=== PATIENT | female | born 1970 | race Caucasian/White ===

== ENCOUNTER 2017-11-30 18:56 | Inpatient (IN) ==
[2017-11-30] MEDS ORDERED: NS 1,000 ML IV ONE ×2 (19:11→23:02)
[2017-11-30] MEDS ORDERED: PROCHLORPERAZINE 10 MG/2 ML INJECTION IVP ONE (19:11)
[2017-11-30] MEDS ORDERED: KETOROLAC 30 MG/ML INJECTION IVP ONE (19:11)
[2017-11-30] MEDS: GI COCKTAIL 30 ML PO ONE ×2 (19:26→20:00)
[2017-11-30] MEDS: SALINE FLUSH 10ml SYRINGE IVF PRN ×2 (19:26→22:11)
--- NOTE | 2017-11-30 19:26 | Emergency Department Report ---
Abdominal Pain HPI - General Chief Complaint: Nausea/Vomiting/Diarrhea Stated Complaint: severe stomach pain, vomiting Time Seen by Provider: 11/30/17 19:01 Source: patient, RN notes reviewed, old records reviewed Mode of arrival: ambulatory Limitations: no limitations - History of Present Illness HPI narrative: 46yo woman presents to the ER for evaluation of abd pain. Pt had abrupt onset of crampy, stabbing pain in her upper/mid abdomen at 0400 today. Pt tried kaopectate and generic 'tums', all without relief but with N/V. Pt has never had sx like this before. Did not try anything else for her sx. States that she has not been able to tolerate anything PO all day. Pain has worsened throughout the day; pt can no longer bear the pain at home. MD complaint: abdominal pain Onset (ago): hour(s) (15) Consistency: constant Location: diffuse Severity: severe Severity scale (1-10): 8 Quality: cramping, stabbing, sharp Radiation: none Migration to: no migration Relieving factors: nothing Exacerbating factors: eating, vomiting, medication, movement Associated symptoms: denies other symptoms Treatments prior to arrival: NSAIDs, antacids - Related Data Home Medications Medication Instructions Recorded Confirmed Ibuprofen 400 mg PO Q6H 11/30/17 11/30/17 Allergies Allergy/AdvReac Type Severity Reaction Status Date / Time No Known Allergies Allergy Unknown Verified 11/30/17 19:11 Review of Systems All systems: reviewed and negative except as stated Gastrointestinal: Reports: as per HPI, abdominal pain, nausea, vomiting. Denies : diarrhea, constipation, hematemesis, melena, hematochezia [facility] Medical History Updates: HTN - currently untreated - Social History Smoking status: Never smoker Physical Exam - Limitations Limitations: no limitations - General General appearance: alert, in no apparent distress, obese (Morbid) - Head Head exam: atraumatic, normocephalic, normal inspection - Eye Eye exam: Present: normal appearance, PERRL, EOMI. Absent: scleral icterus - ENT ENT exam: Present: normal exam, normal oropharynx, mucous membranes moist, normal external ear exam - Neck Neck exam: Present: normal inspection, full ROM, trachea midline - Chest Chest inspection: Present: normal inspection, symmetric chest wall rise. Absent : tenderness, rash - Respiratory Respiratory exam: Present: normal lung sounds bilaterally. Absent: respiratory distress, wheezes, stridor, prolonged expiratory phase, crackles - Cardiovascular Cardiovascular exam: Present: regular rate, normal rhythm, normal heart sounds. Absent: rubs, gallop, clicks - Abdominal Exam Abdominal exam: Present: soft, normal bowel sounds. Absent: distention, tenderness, guarding, rebound, rigidity, heel tap sign, Corral's sign, Rovsing' s sign, tenderness at McBurney's Point - Extremities Exam Extremities exam: Present: normal inspection, full ROM, normal capillary refill. Absent: tenderness, joint swelling - Skin Skin exam: Present: warm, dry, intact. Absent: rash - Neurological Exam Neurological exam: Present: alert, CN II-XII intact, reflexes normal - Psychiatric Psychiatric exam: Present: flat affect Course - Consultations Consultation #1: Dr. Rincon: Will need LFTs; if pt is jaundiced, will need to go [place] for ERCP. If not, can put pt in to the hospital for pain control and consider surgery tomorrow. Would also appreciate RUQ-US; can obtain tomorrow. Time: 22:05 Consultation #2: Adrian Telemed: Will admit for further eval/obs overnight with Gen Surg eval and RUQ-US in the AM. Time: 22:51 Vital Signs Temperature 99 F 11/30/17 19:04 Pulse Rate 109 H 11/30/17 19:04 Respiratory Rate 20 11/30/17 19:04 Blood Pressure 231/116 H 11/30/17 19:04 Pulse Oximetry 97 11/30/17 19:04 Temperature 99 F 11/30/17 19:04 Pulse Rate 109 H 11/30/17 19:04 Respiratory Rate 20 11/30/17 19:04 Blood Pressure 231/116 H 11/30/17 19:04 Pulse Oximetry 97 11/30/17 19:04 Abdominal Pain - MDM Narrative Medical decision making narrative: Pt with atypical presentation of acute cholecystitis. After discussion with Gen Surg, pt does not have bili elevation. Contacted hospitalist for evaluation and Gen Surg consult. Hospitalist has agreed to admit pt overnight. - Differential Diagnosis Differential diagnosis: Likely: abdominal pain, calculus of kidney, constipation , diverticulitis, gastroenteritis, pancreatitis, small bowel obstruction - Medical Records Attestation: I reviewed the patient's medical records. - Lab Data Attestation: I reviewed the patient's lab results. Result diagrams: 11/30/17 19:45 11/30/17 19:45 - Radiology Data Attestation: I reviewed the patient's radiology results. CXR: No acute CT pathology. KUB: Nonobstructing bowel gas pattern. No free air or fluid under the diaphragm. CT Abd/Pelv: IMPRESSION: 1. Distended gallbladder with mild pericholecystic edema. No calcified stones or ductal dilatation. Acute cholecystitis cannot be excluded. Recommend further correlation with right upper quadrant ultrasound. 2. Moderate to large sized hiatal hernia. 3. Mild hepatic steatosis and distal colonic diverticulosis. Disposition Clinical Impression: Acute cholecystitis Disposition: To [facility] [place] Acute Care Print Language: Thai Condition: Improved Prescriptions: No Action Ibuprofen 400 mg PO Q6H Referrals: Primary Care,You Choose [Primary Care Provider] - Time of Disposition: 23:07 - Seen By: physician
[2017-11-30] MEDS ORDERED: PIPERACILLIN/TAZOBACTAM 3.375 GM in NS 100 ML IV ONE ×2 (20:27→23:23)
[2017-11-30] MEDS ORDERED: SALINE FLUSH 10ml SYRINGE ONE (20:52)
[2017-11-30] MEDS ORDERED: IOHEXOL 300mg/ml 100ml INJECTION ONE (20:52)
[2017-11-30] MEDS ORDERED: MORPHINE SULFATE 4mg INJECTION IVP ONE (22:05)
[2017-11-30] MEDS ORDERED: MORPHINE SULFATE 4mg INJECTION IVP PRN (23:23)
[2017-11-30] MEDS ORDERED: ONDANSETRON 4 MG/2 ML INJECTION IVP PRN (23:23)
[2017-11-30 23:30] VITALS: BMI 39.2
[2017-11-30] MEDS ORDERED: MELATONIN 1 MG TABLET PO PRN (23:52)
[2017-12-01] MEDS: NS 1,000 ML IV SCH ×4 (00:05→23:51)
[2017-12-01] MEDS: PANTOPRAZOLE 40 MG INJECTION IVP SCH ×3 (00:05→23:51)
--- NOTE | 2017-12-01 02:44 | History & Physical Report ---
History of Present Illness Date: 12/01/17 Chief complaint: abdomen pain HPI: This is a 46 yo female with onset of abdomen pain at 4 am yesterday. The pain was epigastric and did not radiate to the back. The pateint had nausea/ vomiting with pain. no fever, chills or sweats. In the ED the CT demonstrated changes c/w acute cholecystitis but no stone identified. T bili normal but transaminases were elevated. The surgeon was contacted who requested medical admission and he would see in consult. The patient has a history of poorly treated HtN. The patient will be admitted with antibiotics, npo and surgical cx in the am with gallbladder us ordered. Review of Systems All systems PM: 10-point ROS was reviewed, no additional remarkable complaints except Past Medical History Medical History Updates: HTN - currently untreated Surgical History: tubal ligation, JOLEEN Family History Updates: mother alive and well, father from throat cancer Family History: As Above - Social History Smoking status: Former smoker Substance use type: does not use Alcohol intake frequency: holidays/special occasions only Housing: house Household members: friend(s) Current occupational status: unemployed Current residence: Apartment/Private Home Medications Home Medications Medication Instructions Recorded Confirmed Type Ibuprofen 400 mg PO Q6H 11/30/17 11/30/17 History Allergies Allergy/AdvReac Type Severity Reaction Status Date / Time No Known Allergies Allergy Unknown Verified 11/30/17 19:11 Exam Vital Signs: Temperature 97.1 F 12/01/17 00:44 Pulse Rate 82 12/01/17 00:44 Respiratory Rate 16 12/01/17 00:44 Blood Pressure 148/72 H 12/01/17 00:44 Pulse Oximetry 97 12/01/17 00:44 Telemetry Rhythm: Sinus Rhythm Height/Weight/BMI: Height 1.55 m Weight 94.2 kg Body Mass Index 39.2 - Constitutional Present: mild distress - Routine HEENT Exam Head: Present: normocephalic, atraumatic Eye: Present: PERRL, conjunctivae pink ENT: Present: mucous membranes dry - Routine Neck Exam Present: supple, full ROM - Routine Respiratory Exam Present: CTA bilaterally - Routine Cardiovascular Exam Present: RRR, no murmur - Routine Abdominal Exam Present: soft, non distended, non tender - Routine Extremities Exam Present: no edema - Routine Back/Spine/Pelvis Exam Back/Spine: Present: full ROM - Routine Skin Exam Present: intact, dry - Routine Neurological Exam Present: alert, oriented X3, moving all extremities, normal tone, vision grossly intact, normal speech - Routine Psychiatric Exam Present: normal affect, normal thought process Results - Labs CBC & Chem 7: 11/30/17 19:45 11/30/17 19:45 Labs: reviewed above and will be discussed below CT abd/pelvis c/w acute cholecystitis without stone. pancrease normal Assessment and Plan (1) Acute cholecystitis Current visit: Yes Status: Acute (2) Transaminitis Current visit: Yes Status: Acute (3) Severe sepsis Current visit: Yes Status: Acute (4) Hyperglycemia Current visit: Yes Status: Acute (5) Hypertension Current visit: Yes Status: Acute Assessment and Plan: 1. acute cholecystitis acute POA: npo, zosyn, surgical cx. Dr. Rincon will see in am. repeat labs in the am. ct abd and pelvis appreciated. with transmaiminitis ? dropped stone. US gallbladder ordered for am. 2. severe sepsis acute POA: fluids, cycle LA, should easily improve with fluids and antibitoics 3. HTN chronic POA: hydralazine prn 4. transaminitis acute POA: concerned for dropped stone. US gallbaldder in the am 5. hyperglycemia acute POA: stress related. cannot ecxlude unappeciated dm. repeat labs in the am DVT Prophylaxis: SCD's, Lovenox GI Prophylaxis: Protonix Resuscitation Status: Full Code - Time spent with patient Time with patient PN: 30 minutes - Physician Narrative Physician: Macey Garcia MD Narrative: Date: 12/01/17 Time: 0241 Hospital Course Summary Disclaimer: The visit summary below is not to be considered part of the above Progress Note.
[2017-12-01] MEDS: PIPERACILLIN/TAZOBACTAM 3.375 GM in NS 100 ML IV SCH ×4 (02:56→20:11)
--- NOTE | 2017-12-01 07:26 | CT Scan Report ---
Indication: Abd pain with 21k WBC PROCEDURE: CT abdomen pelvis w con: Encounter: Initial Comparison: None Technique: Axial CT images were performed through the abdomen and pelvis after the administration of intravenous contrast. Coronal and sagittal two-dimensional reformats. Automated Exposure Control and Iterative Reconstruction dose reducing techniques were utilized. Contrast: Omnipaque 300 100 mL Findings: The lung bases are clear. The liver is fatty infiltrated without enhancing mass or bile duct dilatation. Large hiatal hernia with a partially intrathoracic stomach. The gallbladder is mildly distended without gross stone disease. Questionable induration of the surrounding fat. The spleen, pancreas and adrenal glands are within normal limits. The kidneys are normal. No abdominal or pelvic lymphadenopathy. Bladder is normal. Uterus is absent. No free fluid. Mild colonic diverticulosis without acute diverticulitis. The appendix is normal. Bone windows show no acute findings. Impression: Mild gallbladder distention with questionable surrounding inflammation. Right upper quadrant ultrasound could be performed for more sensitive evaluation of possible cholecystitis. There is a preliminary report by [employer]. .
--- NOTE | 2017-12-01 07:28 | XRay Report ---
Indication: Abd pain/n/v PROCEDURE: XR KUB: Encounter: Initial Comparison: None Findings: The bowel gas pattern is nonobstructive and nonspecific. Gas is seen in nondilated small and large bowel to the level of the rectum. Moderate stool is seen throughout the colon. The bony structures are grossly unremarkable. Impression: Nonobstructive nonspecific bowel gas pattern. .
--- NOTE | 2017-12-01 07:29 | XRay Report ---
Indication: HTN PROCEDURE: XR chest 1V: Encounter: Initial Comparison: None FINDINGS: The lungs are clear. There is no abnormal airspace opacity, pleural effusion or pneumothorax identified. The heart size and pulmonary vasculature are within normal limits. Moderate sized gas containing hiatal hernia. No significant skeletal abnormality is seen. IMPRESSION: No acute cardiopulmonary abnormality. .
--- NOTE | 2017-12-01 08:35 | Ultrasound Report ---
Indication: acute cholecystitis PROCEDURE: US gall bladder: Encounter: Initial Comparison: None Technique: Grayscale and color Doppler sonographic imaging of the right upper quadrant of the abdomen was performed. Findings: Hepatic parenchyma is echogenic and sonographically dense without evidence for focal mass. The gallbladder shows a few small shadowing gallstones which appear fixed in the neck with borderline gallbladder wall thickening at 3 mm. Sonographic Corral's sign was reportedly negative. Both the intra and extrahepatic biliary system are of normal caliber with the common duct measuring 2 mm in dimension. Visualized portions of the head and body of the pancreas are unremarkable. The right kidney is present without collecting system dilatation. The right kidney measures 10.7 cm in length. Impression: Cholelithiasis with borderline gallbladder wall thickening can represent acute cholecystitis in the appropriate clinical setting. Recommend surgical evaluation. .
[2017-12-01] MEDS: ENOXAPARIN 40 MG/0.4 ML INJECTION SQ SCH (09:46)
--- NOTE | 2017-12-01 12:43 | History & Physical Report ---
History of Present Illness Date: 12/01/17 HPI: Pt comes in d/t abdominal pain and n/v that started yesterday morning. Pt reports it came on suddenly and didn't really improve throughout the day which led her to come in to the ED last night. Pt vomited multiple times yesterday but denies any hematemesis. Pt reports subjective fever but denies chills. Denies any cp or sob. Pt denies any previous such episodes. 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 Pt denies any other recent illnesses. Denies any hx of liver disease. Denies any drug use, reports occasional EtOH use. Uses tylenol and ibuprofen for joint pain. The abdominal pain was mostly lower and did not radiate anywhere. For full H&P please see previous note. HPI from overnight: This is a 46 yo female with onset of abdomen pain at 4 am yesterday. The pain was epigastric and did not radiate to the back. The pateint had nausea/ vomiting with pain. no fever, chills or sweats. In the ED the CT demonstrated changes c/w acute cholecystitis but no stone identified. T bili normal but transaminases were elevated. The surgeon was contacted who requested medical admission and he would see in consult. The patient has a history of poorly treated HtN. The patient will be admitted with antibiotics, npo and surgical cx in the am with gallbladder us ordered. Review of Systems Review of systems: 10 point ros negative other than what is noted in HPI Past Medical History Medical History Updates: HTN - currently untreated Surgical History: tubal ligation, JOLEEN Family History: As Above - Social History Smoking status: Former smoker Current residence: Apartment/Private Home Medications Home Medications Medication Instructions Recorded Confirmed Type Ibuprofen 400 mg PO Q6H 11/30/17 11/30/17 History Allergies Allergy/AdvReac Type Severity Reaction Status Date / Time No Known Allergies Allergy Unknown Verified 11/30/17 19:11 Exam Vital Signs: Temperature 98.4 F 12/01/17 07:23 Pulse Rate 82 12/01/17 07:23 Respiratory Rate 16 12/01/17 07:23 Blood Pressure 155/73 H 12/01/17 07:23 Pulse Oximetry 95 12/01/17 07:23 Height/Weight/BMI: Height 5 ft 1 in Weight 93.5 kg Body Mass Index 39.2 - Constitutional Present: no acute distress - Routine HEENT Exam Head: Present: normocephalic, atraumatic Eye: Present: EOMI ENT: Present: mucous membranes moist - Routine Respiratory Exam Present: CTA bilaterally. Absent: rales, wheezes - Routine Cardiovascular Exam Present: RRR, no murmur - Routine Abdominal Exam Present: soft, normoactive bowel sounds, non distended, non tender - Routine Extremities Exam Present: no edema. Absent: cyanosis, clubbing - Routine Skin Exam Present: intact, dry. Absent: erythema - Routine Neurological Exam Present: alert, oriented X3 - Routine Psychiatric Exam Present: normal affect, normal thought process Results - Labs CBC & Chem 7: 12/01/17 04:07 12/01/17 04:07 Assessment and Plan (1) Acute cholecystitis Current visit: Yes Status: Acute (2) Transaminitis Current visit: Yes Status: Acute (3) Severe sepsis Current visit: Yes Status: Acute (4) Hyperglycemia Current visit: Yes Status: Acute (5) Hypertension Current visit: Yes Status: Acute Assessment and Plan: Marked Transaminitis -Check liver doppler, cpk, tylenol lvl, hepatitis panel, uds -Unlikely to be from possible cholecystitis Cholecystitis? -Not convinced pt has cholecystitis, discussed with and he is also skeptical -Abd exam and hx not fully consistent, labs are not fitting with cholecystitis, CT/US not conclusive either -Will do HIDA scan -Cont. zosyn for now, surgery team following HTN -Diet controlled per pt - Physician Narrative Narrative: Date: 12/01/17 Time: 1216 Hospital Course Summary Disclaimer: The visit summary below is not to be considered part of the above Progress Note. Hospital Course: 12/01/17 Pt's clinical picture not fully consistent with cholecystitis, marked transaminitis not typically seen with that, will do further work up and HIDA scan and cont. to monitor.
--- NOTE | 2017-12-01 13:03 | Ultrasound Report ---
Indication: Need doppler to rule out vascular occlusion (budd chiari) PROCEDURE: US abd/pelvic doppler complete: Encounter: Initial Comparison: CT abdomen dated November 30, 2017 Technique: Grayscale and color Doppler duplex sonographic imaging of the hepatic vessels was performed. Findings: Pancreas appears grossly normal. Flow direction in the main portal vein is normal with a velocity of 23.4 cm/s, within normal limits. Flow direction is normal with appropriate velocities in the right and left portal vein branches. Appropriate flow direction in the hepatic artery with a peak systolic velocity of 150 cm/s, end diastolic velocity of 54.5 cm/s and resistive index of 0.64. Normal flow direction with appropriate variability in the left, middle and right hepatic veins. Impression: Normal waveforms and velocities. No evidence of hepatic or portal vein occlusion. .
[2017-12-01] MEDS ORDERED: NS (Bact) 30ml INJECTION ONE (13:24)
[2017-12-01] MEDS ORDERED: SALINE FLUSH 10ml SYRINGE ONE (13:24)
--- NOTE | 2017-12-01 16:39 | Nuclear Medicine Report ---
Indication: possibly cholecystitis PROCEDURE: NM hepatobiliary wo pharm: Encounter: Initial Comparison: Gallbladder ultrasound from today and CT abdomen/pelvis from yesterday Technique: 6.5 mCi of Tc-99m mebrofenin was injected intravenously. At approximately 60 minutes following this administration, 2 mg of morphine was administered intravenously due to nonvisualization of the gallbladder. Anterior planar images were obtained. FINDINGS: Radiotracer uptake is seen homogenously within the liver. There is normal clearance of radiotracer from the blood pool. The common bile duct is visualized at approximately 10 minutes. The gallbladder was not visualized by 60 minutes. 2 mg of morphine was administered intravenously followed by an additional 30 minutes of imaging. Persistent nonvisualization of the gallbladder during this post morphine imaging. There is no evidence of radiotracer outside the biliary or gastrointestinal tract. IMPRESSION: Gallbladder nonvisualization consistent with acute cholecystitis. .
[2017-12-01] MEDS: HYDRALAZINE 20 MG/ML INJECTION IVP PRN (16:58)
--- NOTE | 2017-12-01 19:40 | Consultation ---
DATE OF CONSULTATION 12/01/2017 HISTORY OF PRESENT ILLNESS This patient is 46 years old. This patient woke up with abdominal pain at 4:00 a.m. on 11/30/2017. She began vomiting about one hour after that. The patient did have periumbilical abdominal pain at this time. This was mid abdominal pain. It was generalized abdominal pain. It was not localized to the right upper quadrant. The abdominal pain continued throughout the day on 11/30/2017. The patient did vomit multiple times throughout the day on 11/30/2017. She never did experience any diarrhea on 11/30/2017. The patient did finally come in to [facility] Emergency Room on the evening of 11/30/2017 because of persistence of the abdominal pain, nausea and vomiting. White blood cell count at the time of emergency room evaluation was 21,700 with no bands. The patient had serum lipase performed at the time of evaluation at the emergency room and the result was 88 which is normal. The patient had liver function tests performed at the time of evaluation at the emergency room. Total bilirubin was 0.8 which was normal. Alkaline phosphatase was 103 which was normal. AST was 231 which was elevated. ALT was 115 which was elevated. The patient did have a CT scan of the abdomen and pelvis performed at the time of evaluation at the emergency room. This showed some mild gallbladder distention with questionable surrounding inflammation. There was no bile duct dilation. The patient did not have any gallstones demonstrated by the CT scan. The CT scan did show a large hiatal hernia with partial intrathoracic stomach. The CT scan did also show some mild colonic diverticulosis. The patient was admitted to [facility] from the emergency room by the hospitalist service with plans to perform a gallbladder sonogram on the following morning and consult Dr. Rincon on the following morning. The patient was started on treatment with Zosyn 3.375 g every six hours at the time of admission to the hospital. The patient states that she feels much better today. She states that her abdominal pain has completely disappeared. She states that her nausea and vomiting has also disappeared. The patient did undergo a gallbladder sonogram on the morning of 12/01/2017. This gallbladder sonogram shows a few small shadowing gallstones which appear fixed in the neck of the gallbladder with borderline gallbladder wall thickening at 3 mm. Sonographic Corral sign is negative. Bile ducts are not dilated. The radiologist did think that the cholelithiasis with borderline gallbladder wall thickening could represent acute cholecystitis in the appropriate clinical setting. White blood cell count on the morning of 12/01/2017 is 11,000 with no bands. Total bilirubin is 1.9. Alkaline phosphatase is 117. AST is 726. ALT is 505. PHYSICAL EXAMINATION VITAL SIGNS: Temperature is 98.4 degrees Fahrenheit oral. Pulse is 82. Respiratory rate is 16. Blood pressure is 155/73. Pulse is 95% on room air. ABDOMEN: The abdomen is soft and nontender. There are no abdominal masses. SKIN: No jaundice. PAST MEDICAL HISTORY PREVIOUS OPERATIONS 1. bilateral tubal ligation in 1993 in [place]. 2. Transvaginal hysterectomy and posterior colporrhaphy on 12/11/[address] Yamel Reaves at [facility] at [place], [place]. Postoperative diagnoses were metrorrhagia, rectocele and uterine prolapse. LABORATORY DATA The patient has had laboratory test results as described above in the History of Present Illness section. White blood cell count this morning is 11,000 with no bands. Hemoglobin is 10.2. Hematocrit is 32.6. Total bilirubin this morning is 1.9. AST is 726. ALT is 505. Alkaline phosphatase is 117. IMAGING DATA The patient did have a CT scan of the abdomen and pelvis on the evening of 11/30. This shows mild gallbladder distention with questionable surrounding inflammation. No gallstones are demonstrated. Bile ducts are not dilated. The patient underwent a gallbladder sonogram on 12/01/2017. This shows cholelithiasis with borderline gallbladder wall thickening. The radiologist thought this could represent acute cholecystitis in the appropriate clinical setting. IMPRESSION 1. Cholelithiasis with borderline gallbladder wall thickening demonstrated on 12/01/2017 gallbladder sonogram which could represent some early acute cholecystitis. 2. Markedly elevated AST and ALT liver function tests on 12/01/2017 of uncertain cause. 3. Large hiatal hernia with partial intrathoracic stomach demonstrated on 11/30 CT scan of the abdomen and pelvis. 4. Mild colonic diverticulosis demonstrated on 11/30/2017 CT scan of the abdomen and pelvis. 5. Anemia. 6. Episode of acute periumbilical abdominal pain, nausea and vomiting yesterday which is now resolved today. RECOMMENDATION I did see the patient in her room this morning along with Dr. Safder. I think that the patient does need to have a multiport robotic laparoscopic cholecystectomy at some point for treatment of the cholelithiasis with this possible episode of acute cholecystitis. That will probably be performed at some point during this hospitalization. We did talk about holding off on this operation for a short period time for further evaluation of the elevated AST and ALT liver function tests to see if there is some additional process accounting for these abnormal laboratory values. An acute hepatitis panel can be checked. A hepatobiliary scan could be performed. The patient can then be reassessed tomorrow. MTDD
[2017-12-01] MEDS ORDERED: KETOROLAC 30 MG/ML INJECTION IVP ONE (20:03)
[2017-12-02] MEDS: PIPERACILLIN/TAZOBACTAM 3.375 GM in NS 100 ML IV SCH ×3 (03:22→15:13)
[2017-12-02] MEDS: NS 1,000 ML IV SCH (06:28)
--- NOTE | 2017-12-02 10:32 | Progress Note ---
- Date 12/02/17 Subjective: Pt reports feeling better this am, denies any n/v/d, f/c, cp or sob. Denies any abd pain. Pt would like to eat soon. Pt's headache is better from last night. Objective Vital signs: Temperature 97.3 F 12/02/17 00:16 Pulse Rate 83 12/02/17 00:16 Respiratory Rate 18 12/02/17 00:16 Blood Pressure 150/89 H 12/02/17 00:16 Pulse Oximetry 95 12/02/17 00:16 Height/Weight/BMI: Height 5 ft 1 in Weight 93.2 kg Body Mass Index 39.2 - Constitutional Present: no acute distress - Routine HEENT Exam Head: Present: normocephalic, atraumatic Eye: Present: EOMI ENT: Present: mucous membranes moist - Routine Cardiovascular Exam Present: RRR, no murmur - Routine Abdominal Exam Present: soft, non distended, non tender - Routine Extremities Exam Present: no edema. Absent: cyanosis, clubbing - Routine Skin Exam Present: intact, dry. Absent: erythema - Routine Neurological Exam Present: alert, oriented X3 - Routine Psychiatric Exam Present: normal affect Results - Labs CBC & Chem 7: 12/02/17 04:25 12/02/17 04:25 Assessment and Plan (1) Acute cholecystitis Current visit: Yes Status: Acute (2) Transaminitis Current visit: Yes Status: Acute (3) Severe sepsis Current visit: Yes Status: Acute (4) Hyperglycemia Current visit: Yes Status: Acute (5) Hypertension Current visit: Yes Status: Acute Assessment and Plan: Marked Transaminitis -liver doppler unremarkable, cpk wnls, tylenol lvl neg, hepatitis panel pending , uds neg -No clear etiology, not typical with cholecystitis - will get liver biops during cholecystectomy Cholecystitis -Clinical picture not completely consistent but HIDA scan confirmed cholecystitis -Abd exam and hx not fully consistent, labs are not fitting with cholecystitis, CT/US not conclusive either -Cont. zosyn for now, plan for surgery today HTN -Uncontrolled, systolic ranging high in 170s, previously diet controlled -Will start chlorthalidone after surgery - Physician Narrative Narrative: Date: 12/02/17 Time: 1028 Hospital Course Summary Disclaimer: The visit summary below is not to be considered part of the above Progress Note. Hospital Course: 12/01/17 Pt's clinical picture not fully consistent with cholecystitis, marked transaminitis not typically seen with that, will do further work up and HIDA scan and cont. to monitor. 12/02/17 HIDA scan showed cholecystitis, unclear reason for marked transaminitis, plan for surgery today and possibly get a liver biopsy.
[2017-12-02] MEDS: LR 1,000 ML IV SCH ×3 (10:51→15:21)
[2017-12-02] MEDS ORDERED: FentaNYL 250 MCG/5 ML INJECTION ONE ×2 (10:54→12:23)
[2017-12-02] MEDS ORDERED: ROCURONIUM 50 MG/5 ML INJECTION IVP ONE (10:54)
[2017-12-02] MEDS ORDERED: PROPOFOL 20 ML ONE (10:54)
--- NOTE | 2017-12-02 10:58 | Anesthesia Preoperative Report ---
Anesthesia Preoperative Record - Date and Time Date: 12/02/17 Preoperative Diagnosis: severe stomach pain, vomiting Proposed Procedure: robotic assisted lap aby NPO Since Date: 12/02/17 (0300 ice chips no solids since mn ) NPO Since Time: 03:00 Allergies/Adverse Reactions: Allergies Allergy/AdvReac Type Severity Reaction Status Date / Time No Known Allergies Allergy Unknown Verified 11/30/17 19:11 - Vital Signs Vital Signs: Temperature 99.2 F 12/02/17 10:40 Pulse Rate 84 12/02/17 10:40 Respiratory Rate 20 12/02/17 10:40 Blood Pressure 192/99 H 12/02/17 10:40 Pulse Oximetry 98 12/02/17 10:40 Height and Weight: Height 1.55 m Weight 93.2 kg Body Mass Index 39.2 - Medications Inpatient Medications: Current Medications Chlorthalidone (Hygroton) 12.5 mg PO WB WALDO Enoxaparin Sodium (Lovenox) 40 mg SQ DAILY [facility] Last Admin: 12/01/17 09:46 Dose: 40 mg Hydralazine HCl (Apresoline) 10 mg IVP Q6H PRN PRN Reason: Hypertension Last Admin: 12/01/17 16:58 Dose: 10 mg Sodium Chloride (Normal Saline) 1,000 mls @ 100 mls/hr IV .Q10H [facility] Last Admin: 12/02/17 06:28 Dose: Not Given Piperacillin Sod/Tazobactam (Sod 3.375 gm/ Sodium Chloride) 100 mls @ 200 mls/ hr IV Q6H [facility] Last Admin: 12/02/17 07:56 Dose: 200 mls/hr Lactated Ringer's (Lactated Ringers) 1,000 mls @ 100 mls/hr IV .Q10H [facility] Last Admin: 12/02/17 10:51 Dose: 100 mls/hr Melatonin (Melatonin) 3 mg PO HS PRN Last Admin: 12/01/17 20:10 Dose: 3 mg Morphine Sulfate (Morphine Sulfate Inj) 2 - 4 mg IVP Q2H PRN PRN Reason: Pain Last Admin: 12/01/17 15:43 Dose: 2 mg Ondansetron HCl (Zofran) 4 mg IVP Q6H PRN PRN Reason: Nausea &/or vomiting Pantoprazole Sodium (Protonix Iv) 40 mg IVP Q12H [facility] Last Admin: 12/01/17 23:51 Dose: 40 mg Sodium Chloride (Iv Flush) 10 - 80 ml IVF PRN PRN PRN Reason: Flushing Last Admin: 11/30/17 22:11 Dose: 10 ml Home Medications: Home Medications Medication Instructions Recorded Confirmed Type Ibuprofen 400 mg PO Q6H 11/30/17 11/30/17 History - Medical History Respiratory: Reports: Sleep Apnea (pt thinks she has it but not diagnosed ) Cardiovascular: Reports: Hypertension (was not taking anything before hospital visit ) Gastrointestional: Reports: Morbid Obesity Neuro/Musculoskeletal: Reports: Depression (anxiety not treated medically), Headaches - Surgical History Reproductive Surgery/Treatment: Reports: Hysterectomy, Tubal Ligation Anesthesia Reactions: None Hx Family Anesthesia Reaction: Yes (sister unknown problems except nausea vomiting ) - Social History Smoking Status: Former smoker Substance Use Type: does not use Alcohol Intake Frequency: holidays/special occasions only - Pertinent Findings Laboratory: CBC and BMP 12/02/17 04:25 12/02/17 04:25 BMP 12/01/17 12/02/17 19:33 04:25 Sodium 145 H 145 H Potassium 3.7 3.4 L Chloride 111 H 110 H Carbon Dioxide 22 23 BUN 7.0 7.0 Creatinine 0.5 L 0.6 L Glucose 128 H 103 Calcium 8.4 8.4 Cardiac Enzymes 12/01/17 Range/Units 04:07 Total Creatine Kinase 47 (30-135) U/L Liver Function 12/01/17 12/02/17 Range/Units 19:33 04:25 Total Bilirubin 1.20 0.80 (0.20-1.30) MG/DL AST 572 H 336 H (14-36) U/L ALT 614 H 526 H (1-35) U/L Alkaline Phosphatase 160 H D 143 H (38-126) U/L Albumin 3.7 3.4 L (3.5-5.0) g/dL EKG: Sinus Rhythm - Physical Exam Respiratory Exam: Present: lungs clear, bilateral breath sounds equal Cardiovascular Exam: Present: regular rate and rhythm, no murmur - Airway Assessment Mallampati Score: III TMD: 2 Fingerbreadths Neck Extension: fair Overall Assessment: may be difficult intubation - ASA ASA Score: 3 - Plan Anesthesia: General Inhalation Gases - Discussion Discussion: Discussed risks/options/alternatives of anesthesia and questions answered. Patient consents. Nursing pain assessment noted. Attestation Statement: Prior to the delivery of any anesthetic medication, I examined the patient, developed the plan, obtained the patient's consent and discussed the risk and benefits of the procedure with the patient/guardian. - Additional Information Seen by Anesthesia: Yes
[2017-12-02] MEDS ORDERED: BUPIVACAINE 0.25% (2.5mg/ml) PF 30ml INJECTION ONE (11:00)
[2017-12-02] MEDS ORDERED: SALINE FLUSH 10ml SYRINGE ONE (11:00)
[2017-12-02] MEDS ORDERED: INDOCYANINE GREEN 25mg INJECTION ONE (11:00)
[2017-12-02] MEDS ORDERED: INDOCYANINE GREEN 25mg INJECTION IVP ONE (11:24)
[2017-12-02] MEDS ORDERED: SALINE FLUSH 10ml SYRINGE IV ONE (11:24)
[2017-12-02] MEDS ORDERED: MIDAZOLAM 2mg/2ml INJECTION ONE (11:31)
[2017-12-02] MEDS ORDERED: BUPIVACAINE 0.25% (2.5mg/ml) PF 30ml INJECTION ID ONE (11:49)
[2017-12-02] MEDS ORDERED: SUGAMMADEX 200mg/2ml INJECTION IVP ONE (13:02)
--- NOTE | 2017-12-02 13:41 | General Surgery Procedure Note ---
Date of Procedure: 12/02/17 Surgeon: Mckenzie Postoperative Diagnosis: Acute cholecystitis. Procedure: Robotic laparoscopic cholecystectomy. Estimated Blood Loss: See Anesthesia Record.
[2017-12-02] MEDS ORDERED: DiphenhydrAMINE 50 MG/ML INJECTION IVP PRN (13:48)
[2017-12-02] MEDS: HYDROMORPHONE 2 MG/ML INJECTION IVP PRN ×3 (14:06→14:38)
[2017-12-02] MEDS ORDERED: PROMETHAZINE 25 MG INJECTION IVP PRN (14:54)
[2017-12-02] MEDS ORDERED: ONDANSETRON 4 MG/2 ML INJECTION IVP PRN (14:54)
[2017-12-02] MEDS ORDERED: MORPHINE SULFATE 10mg/ml INJECTION IV PRN (14:54)
[2017-12-02] MEDS ORDERED: ACETAMINOPHEN 500 MG TABLET PO PRN (14:54)
--- NOTE | 2017-12-02 15:14 | Operative Note ---
DATE OF OPERATION 12/02/2017 PREOPERATIVE DIAGNOSES 1. Acute cholecystitis and cholelithiasis. 2. Elevated AST and ALT liver function tests. POSTOPERATIVE DIAGNOSES 1. Acute cholecystitis and cholelithiasis. 2. Elevated AST and ALT liver function tests. OPERATION Multiport robotic laparoscopic cholecystectomy and laparoscopically directed needle biopsies of the liver. SURGEON Dr. Rincon ANESTHESIA General. ASA CLASS 2 FINDINGS The patient did have an old infraumbilical incision scar from a bilateral tubal ligation operation. The gallbladder was distended. There was clear fluid aspirated from the gallbladder. The fluid aspirated from the gallbladder did not appear purulent. The gallbladder wall appeared quite thickened. There was some edema around the gallbladder. All these findings were thought to be consistent with some acute cholecystitis. The gallbladder did contain gallstones. The cystic duct had a normal caliber. The liver appeared completely normal. DESCRIPTION OF OPERATION The patient did have injectable indocyanine green dye administered intravenously preoperatively. The patient was placed in supine position on the operating table. General anesthesia was satisfactorily induced. The abdomen was prepped and draped in routine sterile fashion. Bupivacaine 0.25% without epinephrine was infiltrated into the skin and underlying tissue at an infraumbilical incision site. An elliptical incision was made around the old infraumbilical incision scar and extended down into subcutaneous tissue in a wedge-shape fashion to excise the old infraumbilical skin incision scar. A Veress needle was inserted into the peritoneal cavity through the infraumbilical incision. Pneumoperitoneum was established with carbon dioxide. The Veress needle was removed. A 12-mm camera port was placed at the infraumbilical incision. A 12-mm 30-degree da Kat laparoscope was inserted at the infraumbilical port. The table was placed in reverse Trendelenburg position. The right side of the table was tilted up. The skin and underlying structures at the abdominal wall were infiltrated with bupivacaine at a port site at the left upper quadrant of the abdomen at the midclavicular line. An incision was made at this site and an 8-mm da Kat instrument port was placed at this incision. The skin and underlying abdominal wall structures were infiltrated with bupivacaine at another incision site at the left side of the abdomen. An incision was made at this site and an AirSeal assistant principal port was placed at this incision. The skin and underlying abdominal wall structures were infiltrated with bupivacaine at a port site at the right upper quadrant of the abdomen. An incision was made at this site and an 8-mm da Kat instrument port was placed at this incision. The skin and underlying abdominal wall structures were infiltrated with bupivacaine at another port site at a more lateral location at the right side of the abdomen. An incision was made at this site and another 8-mm da Kat instrument port was placed at this incision. The da Kat robotic system was brought up to the operating table. The da Kat robotic system was docked to the camera port and instrument ports. The da Kat 12-mm 30-degree laparoscope was inserted at the camera port. A [place] bipolar forceps was inserted at the 8-mm instrument port at the left upper quadrant of the abdomen associated with instrument arm #1. A Cadiere forceps was inserted at the 8-mm instrument port at the right upper quadrant of the abdomen associated with instrument arm #2. A ProGrasp forceps was inserted at the 8-mm instrument port at the right lateral location at the abdomen associated with instrument arm #3. These instruments were all placed into a position adjacent to the gallbladder. The surgeon did use a syringe and aspirating cannula to aspirate fluid from the distended gallbladder. This fluid looked clear. This fluid was submitted to the laboratory for aerobic and anaerobic bacterial culture and sensitivity studies. The surgeon then went from the patient's side at the operating table to the surgeon console. The ProGrasp forceps with instrument arm #3 was used to grasp the fundus of the gallbladder and elevate the gallbladder and reflect the liver up superiorly towards the right diaphragm. The infundibulum of the gallbladder was grasped with the Cadiere forceps with instrument arm #2. Dissection was performed at the hepatocystic triangle. The cystic duct was dissected out and identified. The cystic artery was dissected out and identified. The cystic duct was demonstrated with Firefly fluorescence imaging at this time. Dissection was performed at the hepatocystic triangle until the only two structures remaining were the cystic duct and the cystic artery. A critical view of safety was achieved at this time. The hepatocystic triangle was cleared of all the fatty and fibrous tissue until the only two structures remaining were the cystic duct and the cystic artery. In addition to this, the infundibulum of the gallbladder was dissected out of the gallbladder bed. Two of the Hem-o-angelika clips were applied to the cystic artery. The cystic artery was divided between the Hem-o-angelika clips with the monopolar curved scissors. Three of the Hem-o-angelika clips were applied to the cystic duct at the junction of the cystic duct and the gallbladder. The cystic duct was divided between the Hem-o-angelika clips with a curved dissecting scissors. Two of the Hem-o-angelika clips were left in place on the cystic duct stump. The monopolar curved scissors was then used to dissect the gallbladder out of the gallbladder bed. Tissue was coagulated with the monopolar curved scissors as the gallbladder was being dissected out of the gallbladder bed to maintain hemostasis. The gallbladder was completely dissected out of the gallbladder bed. The gallbladder was placed in a position in the peritoneal cavity along the margin of the liver. The instruments were removed from the instrument ports. The da Kat laparoscope was removed from the camera port. The da Kat robotic system was undocked from the ports. The surgeon left the surgeon console and returned back to the side of the patient at the operating table. The da Kat 8.5-mm 30-degree laparoscope was inserted at one of the right-sided da Kat instrument ports. The specimen retrieval pouch was inserted at the camera port. The gallbladder was placed in the specimen retrieval pouch. The specimen retrieval pouch containing the gallbladder was brought out through the infraumbilical incision. The gallbladder was submitted as a specimen for study by the pathologist. The 12- mm camera port was reinserted at the infraumbilical incision. The da Kat 12- mm 30-degree laparoscope was inserted at the camera port at the infraumbilical incision. A small incision was made at the right subcostal area. A Alessio-Cut biopsy needle was inserted through this small incision and used to obtain three core needle biopsies from the margin of the liver out beyond the left side of the gallbladder bed. These needle biopsy of liver specimens were placed on a piece of Telfa and submitted for study by the pathologist. A monopolar hook cautery device was inserted at one of the right-sided 8-mm da Kat instrument ports and was used to coagulate the three sites at the surface of the liver at the margin of the liver where the needle biopsies had been performed. This did achieve hemostasis at these sites. Irrigation was performed at the subhepatic space and the right subdiaphragmatic space. Hemostasis appeared be satisfactory everywhere. The instrument ports were then all removed. Carbon dioxide was removed from the peritoneal cavity by desufflation. The fascial layer of the infraumbilical incision was closed with a series of simple interrupted stitches using 0 Vicryl suture. The skin margins were then closed at all the incisions with subcuticular stitches using 4-0 Vicryl suture. Benzoin and 1/4-inch wide Steri-Strips were applied to the incisions. Band- Aids and sterile dressings were applied to the incisions. The patient tolerated the operation well. The patient was transferred from the operating room to the recovery room in satisfactory condition. LAZARO
[2017-12-02] MEDS: PANTOPRAZOLE 40 MG INJECTION IVP SCH ×2 (15:21→22:58)
[2017-12-02] MEDS: HYDRALAZINE 20 MG/ML INJECTION IVP PRN (16:42)
[2017-12-02] MEDS: Oxycodone *IR* 5 MG TABLET PO PRN ×2 (18:12→22:00)
[2017-12-02] MEDS ORDERED: HYDRALAZINE 20 MG/ML INJECTION IVP ONE (19:57)
[2017-12-03] MEDS: LR 1,000 ML IV SCH ×2 (02:22→04:16)
[2017-12-03] MEDS: Oxycodone *IR* 5 MG TABLET PO PRN ×2 (07:17→12:51)
[2017-12-03] MEDS ORDERED: CHLORTHALIDONE 25 MG TABLET PO SCH (08:00)
[2017-12-03] MEDS: ENOXAPARIN 40 MG/0.4 ML INJECTION SQ SCH (08:56)
[2017-12-03] MEDS: PANTOPRAZOLE 40 MG INJECTION IVP SCH (11:10)
[2017-12-03] MEDS: PIPERACILLIN/TAZOBACTAM 3.375 GM in NS 100 ML IV SCH ×2 (11:10→17:43)
--- NOTE | 2017-12-03 11:23 | Progress Note ---
- Date 12/03/17 Subjective: F/U: S/P cholecystectomy POD #1, elevated liver enzymes. Linnea is seen while resting in bed, with nursing at the bedside. She reports that she is feeling better today and states that currently her pain is well controlled. She denies any chest pain, shortness of breath, abdominal pain , nausea, vomiting or dysuria. She has been tolerating oral intake and urinary output is adequate. Labs revealed new leukocytosis (WBC 14.1) with anemia (Hgb 9.3) and thrombocytosis (Plt 409). BMP was unremarkable and LFTs are trending down. Anticipate discharge in near future. Objective Vital signs: Temperature 97.2 F 12/03/17 11:14 Pulse Rate 91 12/03/17 11:14 Respiratory Rate 20 12/03/17 11:14 Blood Pressure 152/86 H 12/03/17 11:14 Pulse Oximetry 96 12/03/17 11:14 Height/Weight/BMI: Height 5 ft 1 in Weight 209 lb 7.026 oz Body Mass Index 39.2 Comments: Resting in bed, nursing at bedside. - Constitutional Present: no acute distress, well nourished, well developed, cooperative - Routine HEENT Exam Head: Present: normocephalic, atraumatic Eye: Present: PERRL. Absent: conjunctival icterus ENT: Present: mucous membranes moist, oropharynx clear - Routine Respiratory Exam Present: CTA bilaterally. Absent: respiratory distress, wheezes - Routine Cardiovascular Exam Present: RRR, S1, S2 - Routine Abdominal Exam Present: soft, normoactive bowel sounds, non distended Comments: mild tenderness with palpation to surgical site. - Routine Extremities Exam Present: edema (trace), full ROM, pulses intact - Routine Back/Spine/Pelvis Exam Back/Spine: Present: full ROM. Absent: vertebral tenderness - Routine Musculoskeletal Exam Musculoskeletal: Present: no clubbing or cyanosis, moving extremities well - Routine Skin Exam Present: intact, dry, warm Comments: Afebrile. - Routine Neurological Exam Present: alert, oriented X3, moving all extremities, hearing grossly intact, normal speech - Routine Lymphatic Exam Lymphatic: Absent: lymphedema - Routine Psychiatric Exam Present: cooperative Results - Labs CBC & Chem 7: 12/03/17 04:33 12/03/17 04:33 Microbiology Results: Microbiology 12/02/17 12:10 Gallbladder Gram Stain - Final 12/02/17 12:10 Gallbladder Surgical Culture - Preliminary Culture Initiated - Results Pending Assessment and Plan (1) Acute cholecystitis Current visit: Yes Status: Acute (2) Transaminitis Current visit: Yes Status: Acute (3) Severe sepsis Current visit: Yes Status: Acute (4) Hyperglycemia Current visit: Yes Status: Acute (5) Hypertension Current visit: Yes Status: Acute Assessment and Plan: S/P cholecystectomy per Dr. Rincon on 12/02/17 -Pain controlled. -Encourage ambulation. -Advance diet as tolerated. -Anticipate discharge either later today or tomorrow, 12/04 Marked Transaminitis -LFTs trending down following cholecystectomy - POD #1. -liver doppler unremarkable, cpk wnls, tylenol lvl neg, hepatitis panel pending , uds neg -Liver biopsy pathology pending. Cholecystitis - resolved -Clinical picture not completely consistent but HIDA scan confirmed cholecystitis -Cont. zosyn for now given leukocytosis, though most likely secondary to post-op HTN -Uncontrolled, systolic ranging high in 170s, previously diet controlled -Chlorthalidone 12.5mg WB initiated 12/03/17. Monitor closely DVT Prophylaxis: SCD's, Lovenox GI Prophylaxis: Protonix Resuscitation Status: Full Code - Time spent with patient Time with patient PN: 30 minutes - Physician Narrative Physician: other (Dr. Wise) Narrative: Date: 12/03/17 Time: 1502 S: Pt doing well, reports some surgical site soreness. Denies any n/v/d, f/c, cp or sob. O: Gen: AAOx3, no acute distress Cards: RRR without murmurs Lungs: CTAB, no wheezes A/P: Pt doing well, no clear etiology for transaminitis, liver biopsy results pending , pt tolerating PO intake well, okay to go home whenever surgery okays pt to go home. Hospital Course Summary Disclaimer: The visit summary below is not to be considered part of the above Progress Note. Hospital Course: 12/01/17 Pt's clinical picture not fully consistent with cholecystitis, marked transaminitis not typically seen with that, will do further work up and HIDA scan and cont. to monitor. 12/02/17 HIDA scan showed cholecystitis, unclear reason for marked transaminitis, plan for surgery today and possibly get a liver biopsy. 12/03/17 POD #[address] Rincon. LFT trending down. Oral intake improving and tolerating well. Pain controlled. Anticipate discharge either today or tomorrow.
--- NOTE | 2017-12-03 15:42 | Discharge Summary ---
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 Pt reports it came on suddenly and didn't really improve throughout the day which led her to come in to the ED last night. Pt vomited multiple times yesterday but denies any hematemesis. Pt reports subjective fever but denies chills. Denies any cp or sob. Pt denies any previous such episodes. 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 Pt denies any other recent illnesses. Denies any hx of liver disease. Denies any drug use, reports occasional EtOH use. Uses tylenol and ibuprofen for joint pain. The abdominal pain was mostly lower and did not radiate anywhere. For full H&P please see previous note. HPI from overnight: This is a 46 yo female with onset of abdomen pain at 4 am yesterday. The pain was epigastric and did not radiate to the back. The pateint had nausea/ vomiting with pain. no fever, chills or sweats. In the ED the CT demonstrated changes c/w acute cholecystitis but no stone identified. T bili normal but transaminases were elevated. The surgeon was contacted who requested medical admission and he would see in consult. The patient has a history of poorly treated HtN. The patient will be admitted with antibiotics, npo and surgical cx in the am with gallbladder us ordered. Hospital Course This is a general summary of the patient's hospital course. For more details refer to the complete medical record. Pt came in with abd pain and n/v that was thought to be cholecystitis but the pain characteristics, imaging and labs were not fully consistent with cholycystitis. HIDA scan was done (after CT and US of abd were inconclusive) that showed cholecystitis. Pt underwent lap aby and did well. Pt had transaminitis with peak AST 726 and peak ALT 614. AST was 108 and ALT 342 on discharge. This degree of transaminitis is not common with cholecystitis but no other clear etiology was identified. Doppler was negative for budd chiari, cpk was wnls, tylenol lvl neg, uds was negative and hepatitis panel is still pending. When lap aby was done, took liver biopsy as well. On day of discharge pt was doing well and tolerating full diet. Pt was ambulating and wanted to go home and recover. Discussed case with and he cleared pt to go home. Pt had mild leukocytosis on day of discharge and that was likely from going under surgery the day before. Pt was instructed to report back to ED if any of her sx's returned or got worse. Pt was instructed to follow up with 's office early next week for post op and repeat of liver labs. will also discuss biopsy results at that time and also refer to a pcp pt can follow with. Pt also had diet controlled HTN on admission but had high BPs during hospital stay so chlorthalidone was started. Pt was informed that electrolytes need to be checked at next visit. Also discussed need to avoid liver toxic meds like tylenol. recommended sending pt home on PRN pain meds. Pending Labs -Hepatitis Panel -Iron panel/ferritin -Liver biopsy Recommend -Repeat CBC, CMP in 3-5 days Hospital course: 12/01/17 Pt's clinical picture not fully consistent with cholecystitis, marked transaminitis not typically seen with that, will do further work up and HIDA scan and cont. to monitor. 12/02/17 HIDA scan showed cholecystitis, unclear reason for marked transaminitis, plan for surgery today and possibly get a liver biopsy. 12/03/17 POD #[address] Rincon. LFT trending down. Oral intake improving and tolerating well. Pain controlled. Anticipate discharge either today or tomorrow. Discharge Plan - Med Rec/Dispo Truven Instructions: Laparoscopic Cholecystectomy (DC) Additional Instructions: Report to ED if: Abdominal pain worsens Nausea and vomitting Fever or chills Expected symptoms: Mild abdominal discomfort Follow up with early next week -Get CBC and CMP checked in 3-5 days to evaluate further decline of transaminitis and to assess electrolyte status with new BP medication -F/u with pcp to further work up transaminitis Prescriptions: New Oxycodone *IR* [Roxicodone *Ir*] 5 mg PO Q6H PRN #10 tab PRN Reason: Pain Chlorthalidone [Hygroton] 12.5 mg PO WB 30 Days #30 tab No Action Ibuprofen 400 mg PO Q6H - Disposition 01 Discharged Home, Self-Care - Dismissal Complete Discharge Instructions are:: Complete
[2017-12-03] MEDS ORDERED: AMLODIPINE 5 MG TABLET PO ONE (16:53)
[2017-12-03] MEDS ORDERED: Oxycodone *IR* 5 MG TABLET PO PRN (18:03)
--- NOTE | 2017-12-03 18:52 | Progress Note ---
DATE 12/03/2017 POSTOP DAY #1 HISTORY The patient is tolerating her diet well. She is not having any nausea or vomiting. She has been up ambulating in her room. She has good pain control with oral analgesics. She is doing well overall. PHYSICAL EXAMINATION VITAL SIGNS: Temperature is 98.6 degrees Fahrenheit oral. Pulse is 87. Respiratory rate is 16. Blood pressure is 140/88. Oxygen saturation is 94% on room air. ABDOMEN: All the abdominal incisions look good. LABORATORY White blood cell count is 14,100 with no bands. Hemoglobin is 9.3. Hematocrit is 30.5. Serum sodium is 144. Serum potassium is 3.6. AST is 108. ALT is 342. Total bilirubin is 0.5. Alkaline phosphatase is 122. IMPRESSION 1. Doing well following multiport robotic laparoscopic cholecystectomy with laparoscopically directed needle biopsies of the liver on 12/02/2017. 2. Elevated liver function tests which are improving. PLAN I think it would be acceptable for the patient to be discharged from the hospital today. DISCHARGE DISPOSITION Followup office visit with Dr. Rincon in one week at the office. LAZARO
[2017-12-03] MEDS ORDERED: PANTOPRAZOLE 40 MG TABLET PO SCH (23:30)
[2017-12-04] MEDS: IBUPROFEN 200 MG TABLET PO PRN ×2 (01:51→12:54)
[2017-12-04] MEDS: HYDRALAZINE 20 MG/ML INJECTION IVP PRN (04:15)
[2017-12-04] MEDS: SALINE FLUSH 10ml SYRINGE IVF PRN (04:15)
[2017-12-04 08:13] VITALS: RESP 16
[2017-12-04] MEDS: ENOXAPARIN 40 MG/0.4 ML INJECTION SQ SCH (08:14)
--- NOTE | 2017-12-04 11:14 | Discharge Summary ---
Discharge Information Date of admission: 11/30/17 23:02 Anticipated date of discharge: 12/04/17 Attending Physician: Macey Garcia MD Primary care physician: [facility] Consults: Consulting Provider: Harvinder Rincon F - Discharge Diagnosis (1) Acute cholecystitis Status: Acute (2) Transaminitis Status: Acute (3) Severe sepsis Status: Acute (4) Hyperglycemia Status: Acute (5) Hypertension Status: Acute S/P cholecystectomy on 12/02/[address] Plasencia for acute cholecystitis Transaminitis-improving Severe sepsis-resolved Hypertension - Procedures Procedures: DATE OF OPERATION 12/02/2017 PREOPERATIVE DIAGNOSES 1. Acute cholecystitis and cholelithiasis. 2. Elevated AST and ALT liver function tests. POSTOPERATIVE DIAGNOSES 1. Acute cholecystitis and cholelithiasis. 2. Elevated AST and ALT liver function tests. OPERATION Multiport robotic laparoscopic cholecystectomy and laparoscopically directed needle biopsies of the liver. FINDINGS The patient did have an old infraumbilical incision scar from a bilateral tubal ligation operation. The gallbladder was distended. There was clear fluid aspirated from the gallbladder. The fluid aspirated from the gallbladder did not appear purulent. The gallbladder wall appeared quite thickened. There was some edema around the gallbladder. All these findings were thought to be consistent with some acute cholecystitis. The gallbladder did contain gallstones. The cystic duct had a normal caliber. The liver appeared completely normal. - Laboratory Labs: LFT trends 11/30/17 12/01/17 12/01/17 19:45 04:07 19:33 AST 231 H 726 H D 572 H ALT 115 H 505 H D 614 H 12/02/17 12/03/17 12/04/17 04:25 04:29 04:07 AST 336 H 108 H D 97 H ALT 526 H 342 H 277 H Hepatitis panel 11/30/17 19:45 Hepatitis A IgM Ab Negative Hep Bs Antigen Negative Hep B Core IgM Ab Negative Hepatitis C Antibody Negative Dismissal labs 12/04/17 12/04/17 04:07 04:07 WBC 12.1 H RBC 3.85 L Hgb 9.3 L Hct 30.8 L MCV 80.0 MCH 24.2 L MCHC 30.2 L Plt Count 368 Sodium 143 Potassium 3.6 Chloride 107 Carbon Dioxide 24 Anion Gap 12 BUN 6.0 L Creatinine 0.5 L GFR Calculation 132 BUN/Creatinine Ratio 12 Glucose 114 H Calculated Osmolality 274 Calcium 8.4 Total Bilirubin 0.40 - Microbiology Microbiology 12/02/17 12:10 Gallbladder Gram Stain - Final 12/02/17 12:10 Gallbladder Surgical Culture - Preliminary No Growth After 1 Day - Radiology Radiology: Date of Exam: 12/01/17 Indication: acute cholecystitis PROCEDURE: US gall bladder: Hepatic parenchyma is echogenic and sonographically dense without evidence for focal mass. The gallbladder shows a few small shadowing gallstones which appear fixed in the neck with borderline gallbladder wall thickening at 3 mm. Sonographic Corral 's sign was reportedly negative.Both the intra and extrahepatic biliary system are of normal caliber with the common duct measuring 2 mm in dimension. Visualized portions of the head and body of the pancreas are unremarkable. The right kidney is present without collecting system dilatation. The right kidney measures 10.7 cm in length. Impression: Cholelithiasis with borderline gallbladder wall thickening can represent acute cholecystitis in the appropriate clinical setting. Recommend surgical evaluation. Date of Exam: 11/30/17 Indication: Abd pain with 21k WBC PROCEDURE: CT abdomen pelvis w con: Findings: The lung bases are clear. The liver is fatty infiltrated without enhancing mass or bile duct dilatation. Large hiatal hernia with a partially intrathoracic stomach. The gallbladder is mildly distended without gross stone disease. Questionable induration of the surrounding fat. The spleen, pancreas and adrenal glands are within normal limits. The kidneys are normal. No abdominal or pelvic lymphadenopathy. Bladder is normal. Uterus is absent. No free fluid. Mild colonic diverticulosis without acute diverticulitis. The appendix is normal. Bone windows show no acute findings. Impression: Mild gallbladder distention with questionable surrounding inflammation. Right upper quadrant ultrasound could be performed for more sensitive evaluation of possible cholecystitis. Date of Exam: 11/30/17 Indication: Abd pain/n/v PROCEDURE: XR KUB: Findings: The bowel gas pattern is nonobstructive and nonspecific. Gas is seen in nondilated small and large bowel to the level of the rectum. Moderate stool is seen throughout the colon. The bony structures are grossly unremarkable. Impression: Nonobstructive nonspecific bowel gas pattern. Date of Exam: 12/01/17 Indication: Need doppler to rule out vascular occlusion (budd chiari) PROCEDURE: US abd/pelvic doppler complete: Findings: Pancreas appears grossly normal. Flow direction in the main portal vein is normal with a velocity of 23.4 cm/s, within normal limits. Flow direction is normal with appropriate velocities in the right and left portal vein branches. Appropriate flow direction in the hepatic artery with a peak systolic velocity of 150 cm/s, end diastolic velocity of 54.5 cm/s and resistive index of 0.64. Normal flow direction with appropriate variability in the left, middle and right hepatic veins. Impression: Normal waveforms and velocities. No evidence of hepatic or portal vein occlusion. Date of Exam: 12/01/17 Indication: possibly cholecystitis PROCEDURE: NM hepatobiliary wo pharm: FINDINGS: Radiotracer uptake is seen homogenously within the liver. There is normal clearance of radiotracer from the blood pool. The common bile duct is visualized at approximately 10 minutes. The gallbladder was not visualized by 60 minutes. 2 mg of morphine was administered intravenously followed by an additional 30 minutes of imaging. Persistent nonvisualization of the gallbladder during this post morphine imaging. There is no evidence of radiotracer outside the biliary or gastrointestinal tract. IMPRESSION: Gallbladder nonvisualization consistent with acute cholecystitis. - Pathology Surgical path report-gallbladder with minimal chronic mucosal inflammation. No atypia or neoplasm. Cholelithiasis. Liver, needle biopsy - Mild to moderately active steatohepatitis with periportal and patchy perisinusoidal fibrosis Brunt grade 1-2/3, stage 2/4 History of Present Illness HPI: Pt comes in d/t abdominal pain and n/v that started yesterday morning. Pt reports it came on suddenly and didn't really improve throughout the day which led her to come in to the ED last night. Pt vomited multiple times yesterday but denies any hematemesis. Pt reports subjective fever but denies chills. Denies any cp or sob. Pt denies any previous such episodes. 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 Pt denies any other recent illnesses. Denies any hx of liver disease. Denies any drug use, reports occasional EtOH use. Uses tylenol and ibuprofen for joint pain. The abdominal pain was mostly lower and did not radiate anywhere. For full H&P please see previous note. HPI from overnight: This is a 46 yo female with onset of abdomen pain at 4 am yesterday. The pain was epigastric and did not radiate to the back. The pateint had nausea/ vomiting with pain. no fever, chills or sweats. In the ED the CT demonstrated changes c/w acute cholecystitis but no stone identified. T bili normal but transaminases were elevated. The surgeon was contacted who requested medical admission and he would see in consult. The patient has a history of poorly treated HtN. The patient will be admitted with antibiotics, npo and surgical cx in the am with gallbladder us ordered. Objective Vital signs: Temperature 97.1 F 12/04/17 08:00 Pulse Rate 91 12/04/17 08:00 Respiratory Rate 16 12/04/17 08:00 Blood Pressure 146/91 H 12/04/17 09:45 Pulse Oximetry 95 12/04/17 08:00 Height/Weight/BMI: Height 1.55 m Weight 95.1 kg Body Mass Index 39.2 - Constitutional Present: no acute distress, well nourished, well developed - Routine HEENT Exam Head: Present: normocephalic, atraumatic - Routine Respiratory Exam Present: CTA bilaterally. Absent: wheezes - Routine Cardiovascular Exam Present: RRR, no murmur - Routine Abdominal Exam Present: soft, normoactive bowel sounds, tenderness (mild - incisional), non distended - Routine Extremities Exam Present: no edema, normal capillary refill - Routine Skin Exam Present: dry, warm - Routine Neurological Exam Present: alert, oriented X3 - Routine Lymphatic Exam Lymphatic: Absent: adenopathy - Routine Psychiatric Exam Present: normal affect, cooperative Hospital Course This is a general summary of the patient's hospital course. For more details refer to the complete medical record. Hospital course: 12/01/17 Pt's clinical picture not fully consistent with cholecystitis, marked transaminitis not typically seen with that, will do further work up and HIDA scan and cont. to monitor. 12/02/17 HIDA scan showed cholecystitis, unclear reason for marked transaminitis, plan for surgery today and possibly get a liver biopsy. 12/03/17 POD #[address] Rincon. LFT trending down. Oral intake improving and tolerating well. Pain controlled. 12/04/17 Pt's BP's have been elevated. Required hydralazine last night. Started on Norvasc. Stable for discharge. Needs to establish with PCP and follow up with [facility] next week. Time spent with patient: discharge greater than 30 minutes Resuscitation Status: Full Code Discharge Plan - Discharge Disposition Discharge Date: 12/04/17 Disposition: Discharged Home, Self-Care *Condition: Improved Reason For Visit (Visit label in EMR): severe stomach pain, vomiting - Discharge Medications *Discharge Medications: New Oxycodone *IR* [Roxicodone *Ir*] 5 mg PO Q6H PRN #10 tab PRN Reason: Pain Amlodipine [Norvasc] 5 mg PO DAILY #30 tab Amlodipine [Norvasc] 5 mg PO DAILY #30 tab Continue Ibuprofen 400 mg PO Q6H - Discharge Packet/Instructions *Diet: Regular diet *Activity: As tolerated *Wound Care: per Dr. Rincon Additional Instructions: You need to establish with a primary care provider *Expected Signs/Symptoms: Decrease in abdominal swelling and slow improvement in pain *Notify Physician if: you have fever, blood pressure greater than 170/90 consistently, increasing pain *During Business Hours Contact: Dr Rincon *After Business Hours Contact: Call [facility] and have Dr Rincon paged *Pending Lab/Results: Will review at F/U Appt (with Dr. Rincon) - Referrals/Follow Up *Referrals/Follow Up: Harvinder Rincon MD [Physician] - 12/10/17 3:00 pm - Patient Handouts Patient Handouts: Laparoscopic Cholecystectomy (DC) - Dismissal Complete Discharge Instructions are:: Complete Physician Narrative - Narrative Attestation Narrative: Date: 12/04/17 Time: 2034 I have independently evaluated and examined this patient. I reviewed the chart, the patient's history, and the QUALITY MANAGER/PA's documented findings as above. We discussed and formulated the assessment and plan as above with additions as below: Linnea was seen much earlier today. She reported that her abdomen was sore but not painful and that she was tolerating oral diet without difficulty. Blood pressure was modestly elevated again overnight and amlodipine initiated this morning. Respirations nonlabored, patient alert. Abdomen soft, nontender to gentle palpation, bowel sounds present Transaminases improving progressively, WBC 12.1 Stable for discharge. Continue amlodipine daily-will require follow-up of blood pressure in the near future.
[2017-12-04 13:56] VITALS: BP 156/99; PULSE 96; TEMP 98.2; O2SAT 96
[2017-12-05] MEDS ORDERED: AMLODIPINE 5 MG TABLET PO SCH (17:00)
== END 2017-12-04 14:43 | disposition home or self-care (01) | DRG 854 ==
LOC: ED 18:56 → SUATTDRO 23:02 → EDHOLD 23:02 → SRG 23:20 → EDHOLD 23:20
PROVIDERS: ADMIT Emergency Medicine; ATTEND Internal Medicine